=== PATIENT | male | born 1980 | race Caucasian/White ===

== ENCOUNTER 2019-05-14 06:31 | Emergency (ER) | payer BC, SELFPAY ==
[2019-05-14 06:42] VITALS: BP 187/112; PULSE 115; RESP 15; TEMP 36.6; O2SAT 98
--- NOTE | 2019-05-14 06:52 | W.ED.GENAD ---
Discharge Plan Disposition Patient Disposition: HOME Condition: Good Discharge Details Chief Complaint: Palpitatns Clinical Impression: Hypertension Primary Care Provider: Jean Pacheco ED Provider: Gil Recio Home Meds and New Rx's Prescriptions: New lisinopril-hydrochlorothiazide 10-12.5 mg tablet 1 tab PO DAILY Qty: 14 RF: 0 Discharge Instructions Instructions: Hypertension (ED) Additional Instructions: Your EKG and laboratory studies look fine. We will start you on medication and have you log your blood pressures over the next week. Contact [facility] for follow-up in one week. Return to ED if you develop severe headache, neurologic changes, chest pain, shortness of breath. Referrals: [facility] [Provider Group] Discharge Data Discharge Date/Time-TO BE ENTERED AT DEPARTURE: 05/14/19 09:06 Medical Decision Making <Louis Espinoza MD - Last Filed: 05/14/19 20:04> Patient here with concern for elevated blood pressure. He is symptomatic in that he can hear and feel his pulse in his ears, has some palpitations, some mild dyspnea with exertion. Initial vitals were quite abnormal with a blood pressure of 187/112. Did come down some on its own in the room. Heart rate normalized in the room. However, both blood pressure and heart rate went back up when I came into the room. Given his previous history, suspect he probably does have untreated hypertension. I do not think he has hypertensive urgency/emergency currently. I do think given he has no primary care should probably start meds here and refer to primary care in the area. Patient's EKG is sinus rhythm at a rate of 96. Normal EKG. Laboratory studies were sent. Case discussed with Dr. Vargas who was health information technologist for medicine referrals. Recommends starting lisinopril 10/hydrochlorothiazide 12.5 if labs are normal. Case signed out to Dr. Recio who will follow up on labs. Patient already instructed to log his blood pressures once or twice a day over the next week and to follow-up with [facility]. ECG Data Attestation: I personally reviewed and interpreted this ECG (s) as follows: Prior ECG tracings: available for review Interpretation: Sinus rhythm at 96. Normal axis and intervals. Normal ST segments. <Gil Recio MD - Last Filed: 05/14/19 08:57> pt signed out to me pending lab work which is unremarkble and on my exam he is asymptomatic with bp of 150 systolic. He understands importance of starting BP med and f/u with Dr. Vargas. Will d/c and return precautions given HPI <Louis Espinoza MD - Last Filed: 05/14/19 20:04> General Mode of arrival: ambulatory. Date/Time Provider Initiated Documentation: 05/14/19 06:51. Limitations to Documentation: no limitations. Information obtained by: patient and RN notes reviewed. HPI Narrative: Patient presents to ED with complaint of whooshing in his ears, hearing his pulse in his ears, palpitations, mild dyspnea on exertion, elevated blood pressure. Patient reports that he has not seen a primary care physician in over 5 years. Prior to that he had been told he had elevated blood pressure and maybe should be on medications but never followed up through this. [place] that blood pressure could possibly be elevated due to white coat syndrome. But even at the end of his appointments his blood pressure was still elevated typically. He denies having headache or neurologic changes, chest pain, swelling, difficulty breathing. Related Data Home Medications Medication Instructions Recorded Confirmed lisinopril-hydrochlorothiazide 1 tab PO DAILY #14 tab 05/14/19 Previous Rx's Medication Instructions Recorded lisinopril-hydrochlorothiazide 1 tab PO DAILY #14 tab 05/14/19 General Stated Complaint: Palpitatns LIZY: 3 Review of Systems <Louis Espinoza MD - Last Filed: 05/14/19 20:04> Narrative: As documented in HPI otherwise negative as below. Const: no fever, chills, weakness Resp: no cough, SOB, pleuritic pain CV: no CP, diaphoresis, edema, syncope GI: no abdominal pain, nausea, vomiting, diarrhea Neuro: no headache, numbness, focal weakness, confusion PFSH <Louis Espinoza MD - Last Filed: 05/14/19 20:04> Social History (Updated 05/14/19 @ 08:06 by Louis Espinoza MD) Smoking/Tobacco Use Status: Never Alcohol Intake: current Alcohol Intake frequency: a few times a week Do you feel safe at home: Yes Do you feel safe in your relationship?: Yes Exam <Louis Espinoza MD - Last Filed: 05/14/19 20:04> Narrative Exam Narrative: Vitals: Afebrile. Elevated blood pressure and heart rate but normal room air pulse ox. Const: WDWN male in NAD. HEENT: NC/AT. Normal facial exam. Eyes: Normal conjunctiva and sclera. Neck: Supple. Trachea midline. Lungs: Normal respiratory effort. Lungs are clear. Cor: RRR without murmur/gallop. Good radial pulses. Neuro: A+O x 3. CN II - XII grossly in tact. Normal speech, mentation, gait, strength, sensation. Ext: No C/C/E. Skin: Warm and dry without rash. Course <Louis Espinoza MD - Last Filed: 05/14/19 20:04> Vital Signs Vital signs: Vital Signs Temperature 97.9 F 05/14/19 06:42 Pulse 115 H 05/14/19 06:42 Respiratory Rate 15 05/14/19 06:42 Blood Pressure 187/112 H 05/14/19 06:42 Pulse Oximetry 98 05/14/19 06:42 Temperature 97.9 F 05/14/19 06:42 Temperature Source Tympanic 05/14/19 06:42 Pulse 115 H 05/14/19 06:42 Respiratory Rate 15 05/14/19 06:42 Blood Pressure 187/112 H 05/14/19 06:42 Blood Pressure Position Supine 05/14/19 06:42 Pulse Oximetry 98 05/14/19 06:42 Oxygen Delivery Method Room Air 05/14/19 06:42 Oxygen Flow Rate 0 05/14/19 06:42 Pain Level 0 05/14/19 06:42 Comment 05/14/19 06:42
[2019-05-14 07:46] LABS: Abs Immature Grans 0.01 k/cumm (0.0-0.09); Absolute Basophil Count 0.02 k/cumm (0.0-0.2); Absolute Eosinophil Count 0.13 k/cumm (0.0-0.7); Absolute Lymphocyte Count 1.49 k/cumm (1.2-3.4); Absolute Monocyte Count 0.43 k/cumm (0.11-0.7); Absolute Neutrophil Count 3.24 k/cumm (1.2-6.7); Basophils % 0.4; Eosinophils % 2.4; HCT 43.2 % (40.0-50.0); HGB 15.3 g/dL (13.5-17.5); Immature Grans % 0.2; Mean Corp. HGB Concentration 35.4 g/dL (32.0-36.0); Mean Corpuscular Hemoglobin 30.1 pg (27.0-33.0); Mean Corpuscular Volume 84.9 fL (80-95); Mean Platelet Volume 10.1 fL (8.0-11.0); Monocytes % 8.1; Neutrophils % 60.9; Platelet Count 232 x1000/uL (130-400); RBC 5.09 m/cumm (4.50-6.00); RBC Distribution Width 12.6 % (11.8-14.1); White Blood Cell Count 5.32 k/cumm (4.4-10.8)
[2019-05-14 08:00] LABS: ALT 53 U/L (16-63); AST 38 U/L (15-37); Alkaline Phosphatase 70 U/L (46-116); Anion Gap 10.2 mmol/L (3-11); BUN 18 mg/dL (7-18); Bilirubin, Total 0.8 mg/dL (0.2-1.0); CO2 25.8 mmol/L (21.0-32.0); CREATININE 1.08 mg/dL (0.70-1.30); Chloride 106 mmol/L (98-107); Glucose 116 mg/dL (70-100); Sodium 142 mmol/L (136-145); Total Protein 7.6 g/dL (6.4-8.2)
--- NOTE | 2019-05-14 08:06 | NUR.NOTE ---
Referral faxed to [facility], Dr. Vargas.Nursing Note:
[2019-05-14 08:47] LABS: Magnesium 1.9 mg/dL (1.8-2.4); TSH 2.19 uIU/mL (0.36-3.74)
[2019-05-14 09:05] VITALS: BP 161/96; PULSE 79; RESP 16; O2SAT 98
== END 2019-05-14 09:06 | disposition home or self-care (01) ==
PROVIDERS: Emergency Medicine; Emergency Provider Emergency Medicine; PCP Nurse Practitioner Family
DX: I10 Essential (primary) hypertension (principal)
CPT/HCPCS: 36415; 80053; 93005; 99284; 83735; 84443; 85025; 93010

== ENCOUNTER 2019-08-20 08:47 | Outpatient (REF) | payer BC, SELFPAY ==
[2019-08-20 12:18] LABS: BUN 18 mg/dL (7-18); CREATININE 1.03 mg/dL (0.70-1.30); Calcium 9.1 mg/dL (8.5-10.1); Calculated LDL 155 mg/dL (<100); Chloride 102 mmol/L (98-107); Cholesterol 226 mg/dL (<200); Glucose 102 mg/dL (74-106); HDL Cholesterol 33 mg/dL (40-60); Potassium 4.2 mmol/L (3.5-5.1); Sodium 139 mmol/L (136-145); Triglyceride 192 mg/dL (<150)
== END 2019-08-20 09:07 ==
LOC: NCHCN 08:47
PROVIDERS: PCP Nurse Practitioner Family; Visit Provider Nurse Practitioner Family
DX: I10 Essential (primary) hypertension (principal); L82.1 Other seborrheic keratosis; Z13.220 Encounter for screening for lipoid disorders
CPT/HCPCS: 80048; 80061

== ENCOUNTER 2021-02-10 12:13 | Outpatient (REF) | payer BC, SELFPAY ==
[2021-02-10 14:35] LABS: ALT 61 U/L (16-63); AST 35 U/L (15-37); Albumin 4.1 g/dL (3.4-5.0); Alkaline Phosphatase 70 U/L (46-116); Anion Gap 6.5 mmol/L (3-11); BUN 18 mg/dL (7-18); Bilirubin, Total 0.5 mg/dL (0.2-1.0); CO2 28.5 mmol/L (21.0-32.0); CREATININE 1.2 mg/dL (0.70-1.30); Calcium 9.5 mg/dL (8.5-10.1); Chloride 106 mmol/L (98-107); Glucose 104 mg/dL (74-106); Potassium 4.5 mmol/L (3.5-5.1); Sodium 141 mmol/L (136-145); Total Protein 7.5 g/dL (6.4-8.2)
== END 2021-02-10 12:14 | disposition home or self-care (01) ==
LOC: LBN 12:13
PROVIDERS: PCP Nurse Practitioner Family; Visit Provider Nurse Practitioner Family
DX: Z00.00 Encounter for general adult medical examination without abnormal findings (principal); I10 Essential (primary) hypertension
CPT/HCPCS: 80053

== ENCOUNTER 2021-08-10 14:28 | Outpatient (REF) | payer BC, SELFPAY ==
[2021-08-10 17:58] LABS: Calculated LDL 154 mg/dL (<100); Cholesterol 231 mg/dL (<200); HDL Cholesterol 32 mg/dL (40-60); Triglyceride 229 mg/dL (<150)
== END 2021-08-10 14:29 | disposition home or self-care (01) ==
LOC: NCHCN 14:28
PROVIDERS: PCP Nurse Practitioner Family; Visit Provider Nurse Practitioner Family
DX: E78.5 Hyperlipidemia, unspecified (principal)
CPT/HCPCS: 80061

== ENCOUNTER 2022-08-12 15:55 | Outpatient (REF) | payer BC, SELFPAY ==
[2022-08-12 15:36] LABS: HCT 46.3 % (40.0-50.0); HGB 16.3 g/dL (13.5-17.5); MCH 29.6 pg (27.0-33.0); MCHC 35.2 % (32.0-36.0); MCV 84 fL (80-95); MPV 10.3 fL (8.0-11.0); Platelet Count 277 10^3/uL (130-400); RDW 11.8 % (11.8-14.1); RDW-SD 35.7 fL; WBC 7.47 10^3/uL (4.4-10.8)
[2022-08-12 15:42] LABS: ALT 58 U/L (16-63); AST 31 U/L (15-37); Albumin 4.6 g/dL (3.4-5.0); Alkaline Phosphatase 72 U/L (46-116); Anion Gap 8.1 mmol/L (3-11); BUN 29 mg/dL (7-18); Bilirubin, Total 0.5 mg/dL (0.2-1.0); CO2 26.9 mmol/L (21.0-32.0); CREATININE 1.2 mg/dL (0.70-1.30); Calcium 9.7 mg/dL (8.5-10.1); Calculated LDL 148 mg/dL (<100); Chloride 103 mmol/L (98-107); Cholesterol 210 mg/dL (<200); Estimated GFR 76.48 (mL/min/1.73m2); Glucose 117 mg/dL (74-106); HDL Cholesterol 33 mg/dL (40-60); Potassium 4.2 mmol/L (3.5-5.1); Sodium 138 mmol/L (136-145); Total Protein 8.4 g/dL (6.4-8.2); Triglyceride 149 mg/dL (<150)
== END 2022-08-12 15:56 | disposition home or self-care (01) ==
LOC: NCHCN 15:55
PROVIDERS: PCP Nurse Practitioner Family; Visit Provider Nurse Practitioner Family
DX: Z00.00 Encounter for general adult medical examination without abnormal findings (principal)
CPT/HCPCS: 80053; 80061; 85027

== ENCOUNTER 2023-08-22 11:16 | Outpatient (REF) | payer BC, SELFPAY ==
[2023-08-22 19:20] LABS: ALT 65 U/L (16-63); AST 31 U/L (15-37); Albumin 4.4 g/dL (3.4-5.0); Alkaline Phosphatase 68 U/L (46-116); Anion Gap 8.6 mmol/L (3-11); BUN 20 mg/dL (7-18); Bilirubin, Total 0.8 mg/dL (0.2-1.0); CO2 27.4 mmol/L (21.0-32.0); CREATININE 1.1 mg/dL (0.70-1.30); Calcium 9.8 mg/dL (8.5-10.1); Calculated LDL 162 mg/dL (<100); Chloride 103 mmol/L (98-107); Cholesterol 236 mg/dL (<200); Estimated GFR 84.37 (mL/min/1.73m2); Glucose 105 mg/dL (74-106); HDL Cholesterol 36 mg/dL (40-60); Sodium 139 mmol/L (136-145); Total Protein 8.2 g/dL (6.4-8.2); Triglyceride 192 mg/dL (<150)
== END 2023-08-22 11:17 | disposition home or self-care (01) ==
LOC: NCHCN 11:16
PROVIDERS: PCP Nurse Practitioner Family; Referring Provider Nurse Practitioner Family; Visit Provider Nurse Practitioner Family
DX: I10 Essential (primary) hypertension (principal); E78.5 Hyperlipidemia, unspecified
CPT/HCPCS: 80053; 80061

== ENCOUNTER 2024-12-18 08:49 | Outpatient (REF) | payer OTHER, SELFPAY ==
[2024-12-18 16:01] LABS: HCT 43.9 % (40.0-50.0); HGB 15.4 g/dL (13.5-17.5); MCH 29.6 pg (27.0-33.0); MCHC 35.1 % (32.0-36.0); MCV 84 fL (80-95); MPV 10.6 fL (8.0-11.0); Platelet Count 233 10^3/uL (130-400); RBC 5.21 10^6/uL (4.36-5.78); RDW 11.9 % (11.8-14.1); RDW-SD 35.9 fL; WBC 6.44 10^3/uL (4.4-10.8)
[2024-12-18 16:28] LABS: ALT 65 U/L (16-63); AST 33 U/L (15-37); Albumin 4.5 g/dL (3.4-5.0); Alkaline Phosphatase 90 U/L (46-116); Anion Gap 11.7 mmol/L (3-11); BUN 27 mg/dL (7-18); Bilirubin, Total 0.8 mg/dL (0.2-1.0); CO2 25.3 mmol/L (21.0-32.0); CREATININE 1.3 mg/dL (0.70-1.30); Calcium 9.5 mg/dL (8.5-10.1); Calculated LDL 142 mg/dL (<100); Chloride 102 mmol/L (98-107); Cholesterol 225 mg/dL (<200); Estimated GFR 68.61 (mL/min/1.73m2); Glucose 106 mg/dL (74-106); HDL Cholesterol 32 mg/dL (>or=40); Potassium 4.5 mmol/L (3.5-5.1); Sodium 139 mmol/L (136-145); Total Protein 7.9 g/dL (6.4-8.2); Triglyceride 258 mg/dL (<150)
[2024-12-19 11:25] LABS: Hepatitis C Ab w Rflx HCV PCR Negative (Negative)
== END 2024-12-18 08:50 | disposition home or self-care (01) ==
LOC: NCHCN 08:49
PROVIDERS: Visit Provider Nurse Practitioner Family
DX: Z00.00 Encounter for general adult medical examination without abnormal findings (principal)
CPT/HCPCS: 80053; 80061; 85027; 86803

== ENCOUNTER 2025-03-17 14:14 | Outpatient (REF) | payer OTHER, SELFPAY ==
[2025-03-17 15:40] LABS: HCT 44.3 % (40.0-50.0); HGB 15.6 g/dL (13.5-17.5); MCH 29.5 pg (27.0-33.0); MCHC 35.2 % (32.0-36.0); MCV 84 fL (80-95); MPV 10.4 fL (8.0-11.0); Platelet Count 236 10^3/uL (130-400); RBC 5.29 10^6/uL (4.36-5.78); RDW 11.9 % (11.8-14.1); RDW-SD 36.1 fL; WBC 5.38 10^3/uL (4.4-10.8)
[2025-03-17 16:43] LABS: ALT 86 U/L (16-63); AST 52 U/L (15-37); Albumin 4.7 g/dL (3.4-5.0); Alkaline Phosphatase 78 U/L (46-116); Anion Gap 9.5 mmol/L (3-11); BUN 20 mg/dL (7-18); Bilirubin, Total 0.9 mg/dL (0.2-1.0); CO2 27.5 mmol/L (21.0-32.0); Calcium 9.9 mg/dL (8.5-10.1); Chloride 102 mmol/L (98-107); Estimated GFR 83.32 (mL/min/1.73m2); Ferritin 557 ng/mL (26-388); GGT 56 U/L (15-85); Glucose 103 mg/dL (74-106); Potassium 3.8 mmol/L (3.5-5.1); Sodium 139 mmol/L (136-145); Total Protein 8.1 g/dL (6.4-8.2)
[2025-03-18 03:54] LABS: Vitamin B12 478 pg/mL (193-986)
[2025-03-18 14:55] LABS: Iron 146 ug/dL (65-175); Total Iron Binding Capacity 370 ug/dL (250-450); Transferrin Sat 39 % (20-55)
[2025-03-18 16:05] LABS: COMMENT (LAB VIEW ONLY) 24.11 mg/dL; Microalb ug/mg Crea 9.1 ug/mg Cr
[2025-03-18 23:25] LABS: Calculated LDL 152 mg/dL (<100); Cholesterol 224 mg/dL (<200); HDL Cholesterol 29 mg/dL (>or=40); Triglyceride 216 mg/dL (<150)
== END 2025-03-17 14:15 | disposition home or self-care (01) ==
LOC: NCHCN 14:14
PROVIDERS: PCP Nurse Practitioner Family; Visit Provider Nurse Practitioner Family
DX: R45.89 Other symptoms and signs involving emotional state (principal); E78.2 Mixed hyperlipidemia; R79.89 Other specified abnormal findings of blood chemistry; K30 Functional dyspepsia; I10 Essential (primary) hypertension
CPT/HCPCS: 80053; 80061; 85027; 82043; 82570; 82607; 82728; 82977; 83540; 83550

== ENCOUNTER 2025-04-08 03:27 | Outpatient (CLI) | payer OTHER, SELFPAY ==
[2025-04-08 09:55] LABS: Hemoglobin A1C 5.3 % (<5.7)
[2025-04-08 20:48] LABS: Hepatitis A Antibody IgM Negative (Negative); Hepatitis C Ab w Rflx HCV PCR Negative (Negative)
== END 2025-04-08 03:28 | disposition home or self-care (01) ==
LOC: LBO 03:27
PROVIDERS: PCP Nurse Practitioner Family; Visit Provider Nurse Practitioner Family
DX: R79.89 Other specified abnormal findings of blood chemistry (principal); R79.9 Abnormal finding of blood chemistry, unspecified
CPT/HCPCS: 36415; 86704; 86709; 86803; 87340; 83036